=== PATIENT | male | born 1940 | race Caucasian/White ===

== ENCOUNTER → 2020-01-01 08:09 | Outpatient (BNVA) | payer MEDICARE, OTHER, SELFPAY | PROVIDERS: PCP Family Medicine; Referring Provider Family Medicine; Visit Provider Nurse Practitioner Family | DX: I25.10 Atherosclerotic heart disease of native coronary artery without angina pectoris (principal); R09.89 Other specified symptoms and signs involving the circulatory and respiratory systems; E78.5 Hyperlipidemia, unspecified; I10 Essential (primary) hypertension; E11.9 Type 2 diabetes mellitus without complications; Z79.82 Long term (current) use of aspirin; Z79.899 Other long term (current) drug therapy; Z86.79 Personal history of other diseases of the circulatory system; Z95.1 Presence of aortocoronary bypass graft | CPT/HCPCS: 99214 ==

== ENCOUNTER 2020-02-19 09:28 | Outpatient (REF) | payer MEDICARE, OTHER, SELFPAY ==
--- NOTE | 2020-02-19 09:34 | US_ITS ---
EXAMINATION: US EXTRACRANIAL CAROTID DUPLEX, BILATERAL CLINICAL INFORMATION: History of right carotid endarterectomy 10 years ago. Surveillance. COMPARISON: Ultrasound carotid Doppler 09/01/2009. TECHNIQUE: Real-time ultrasound and Doppler techniques (integrating B-mode 2-D vascular images, Doppler spectral analysis and color-flow Doppler imaging) were utilized to interrogate the extracranial carotid arteries, the vertebral arteries and proximal subclavian arteries bilaterally. The degree of stenosis is determined by criteria similar to NASCET. FINDINGS: Right Side: 1. There is hard atherosclerotic plaque seen in the bifurcation/proximal ICA region. 2. The common carotid artery PSV proximally is 77 cm/s and distally 63 cm/s. 3. The proximal internal carotid artery velocities are 199 cm/s systolic and 46 cm/s diastolic. 4. The proximal external carotid artery PSV is 83 cm/s. 5. The vertebral artery shows antegrade flow. 6. The subclavian artery waveforms are normal. Left Side: 1. There is hard atherosclerotic plaque seen in the bifurcation/proximal ICA region. 2. The common carotid artery PSV proximally is 124 cm/s and distally 95 cm/s. 3. The proximal internal carotid artery velocities are 93 cm/s systolic and 16 cm/s diastolic. 4. The proximal external carotid artery PSV is 123 cm/s. 5. The vertebral artery shows antegrade flow. 6. The subclavian artery waveforms are normal. US/US carotid duplex BI IMPRESSION: 1. RIGHT: 50-79% range stenosis right internal carotid artery with hard atherosclerotic plaque and increased internal carotid artery velocities. 2. LEFT: 0-49% range stenosis left carotid artery. 3. Normal antegrade flow seen in both vertebral arteries.
== END 2020-02-19 09:29 | disposition home or self-care (01) ==
LOC: HO.US 09:28
PROVIDERS: Visit Provider Nurse Practitioner Family
DX: I77.9 Disorder of arteries and arterioles, unspecified (principal); I65.21 Occlusion and stenosis of right carotid artery; I10 Essential (primary) hypertension; E78.5 Hyperlipidemia, unspecified; Z98.890 Other specified postprocedural states
CPT/HCPCS: 93880

== ENCOUNTER → 2020-03-18 10:12 | Outpatient (BNVA) | payer MEDICARE, OTHER, SELFPAY | PROVIDERS: PCP Family Medicine; Visit Provider Surgery Vascular Surgery | DX: I65.23 Occlusion and stenosis of bilateral carotid arteries (principal); Z79.82 Long term (current) use of aspirin; Z79.899 Other long term (current) drug therapy | CPT/HCPCS: 99202 ==

== ENCOUNTER 2020-06-02 06:58 | Outpatient (REF) | payer MEDICARE, OTHER, SELFPAY ==
[2020-06-02 08:42] LABS: Alanine Aminotransferase 46 U/L (0-40); Anion Gap 14 (12-20); Blood Urea Nitrogen 22 mg/dL (9-16); Carbon Dioxide 29 mmol/L (22-29); Chloride 102 mmol/L (96-108); Cholesterol 135 mg/dL; Estimated Glomerular Filt Rate > 60; HDL Cholesterol 42 mg/dL; LDL Cholesterol Calculated 57 mg/dl; Potassium 4.8 mmol/L (3.3-5.1); Sodium 140 mmol/L (135-145); Triglycerides 181 mg/dL
== END 2020-06-02 06:59 | disposition home or self-care (01) ==
LOC: HO.LAB 06:58
PROVIDERS: PCP Family Medicine; Visit Provider Family Medicine
DX: I10 Essential (primary) hypertension (principal); E11.9 Type 2 diabetes mellitus without complications; E78.00 Pure hypercholesterolemia, unspecified; Z79.899 Other long term (current) drug therapy
CPT/HCPCS: 36415; 80051; 80061; 82550; 82565; 84460; 84520

== ENCOUNTER → 2020-06-19 08:06 | Outpatient (BNVA) | payer MEDICARE, OTHER, SELFPAY | PROVIDERS: PCP Family Medicine; Visit Provider Internal Medicine | DX: I25.10 Atherosclerotic heart disease of native coronary artery without angina pectoris (principal); I10 Essential (primary) hypertension; I65.23 Occlusion and stenosis of bilateral carotid arteries; E78.5 Hyperlipidemia, unspecified; Z95.1 Presence of aortocoronary bypass graft | CPT/HCPCS: 99212 ==

== ENCOUNTER 2020-09-16 13:33 | Outpatient (REF) | payer MEDICARE, OTHER, SELFPAY ==
--- NOTE | ~2020-09-16 | US_ITS ---
EXAMINATION: US EXTRACRANIAL CAROTID DUPLEX, BILATERAL CLINICAL INFORMATION: Status post right endarterectomy 10 years ago. COMPARISON: Ultrasound carotid 02/19/2020 TECHNIQUE: Real-time ultrasound and Doppler techniques (integrating B-mode 2-D vascular images, Doppler spectral analysis and color-flow Doppler imaging) were utilized to interrogate the extracranial carotid arteries, the vertebral arteries and proximal subclavian arteries bilaterally. The degree of stenosis is determined by criteria similar to NASCET. FINDINGS: Right Side: 1. There is hard atherosclerotic plaque seen in the bifurcation/proximal ICA region. 2. The common carotid artery PSV proximally is 78 cm/s and distally 60.4 cm/s. 3. The proximal internal carotid artery velocities are 142 cm/s systolic and 28.5 cm/s diastolic. 4. The proximal external carotid artery PSV is 248 cm/s. 5. The vertebral artery shows antegrade flow. 6. The subclavian artery waveforms are normal. Left Side: 1. There is hard atherosclerotic plaque seen in the bifurcation/distal CCA. 2. The common carotid artery PSV proximally is 120 cm/s and distally 83.8 cm/s. 3. The proximal internal carotid artery velocities are 112 cm/s systolic and 21.2 cm/s diastolic. 4. The proximal external carotid artery PSV is 125 cm/s. 5. The vertebral artery shows antegrade flow. 6. The subclavian artery waveforms are 76.2. US/US carotid duplex BI IMPRESSION: 1. RIGHT: 50-79% range stenosis. 2. LEFT: 0-49% range stenosis 3. There is no change in the category severity of disease when compared to the previous study dated 02/19/2020. 4. Normal antegrade flow seen in both vertebral arteries.
== END 2020-09-16 13:34 | disposition home or self-care (01) ==
LOC: HO.HMGCX 13:33
PROVIDERS: PCP Family Medicine; Visit Provider Surgery Vascular Surgery
DX: I65.23 Occlusion and stenosis of bilateral carotid arteries (principal)
CPT/HCPCS: 93880

== ENCOUNTER → 2020-09-30 09:54 | Outpatient (BNVA) | payer MEDICARE, OTHER, SELFPAY | PROVIDERS: PCP Family Medicine; Visit Provider Surgery Vascular Surgery | DX: I65.23 Occlusion and stenosis of bilateral carotid arteries (principal) | CPT/HCPCS: 99212 ==

== ENCOUNTER 2020-11-04 06:29 | Outpatient (REF) | payer MEDICARE, OTHER, SELFPAY ==
[2020-11-04 08:29] LABS: Estimated Average Glucose 160 mg/dL; Hemoglobin A1c % 7.2 %
[2020-11-04 08:37] LABS: Creatinine Urine 111.91 mg/dL; Microalbum/Creatinine Ratio Ur 80.4 ug/mg cr
[2020-11-04 08:54] LABS: Alanine Aminotransferase 47 U/L (0-40); Anion Gap 17 (12-20); Aspartate Amino Transferase 29 U/L (5-37); Blood Urea Nitrogen 29 mg/dL (9-16); Carbon Dioxide 26 mmol/L (22-29); Chloride 103 mmol/L (96-108); Estimated Glomerular Filt Rate > 60; Glucose Fasting 146 mg/dL (60-99); Potassium 5.8 mmol/L (3.3-5.1); Sodium 140 mmol/L (135-145)
== END 2020-11-04 06:30 | disposition home or self-care (01) ==
LOC: HO.LAB 06:29
PROVIDERS: PCP Family Medicine; Referring Provider Internal Medicine; Visit Provider Family Medicine
DX: I10 Essential (primary) hypertension (principal); E11.9 Type 2 diabetes mellitus without complications; R79.89 Other specified abnormal findings of blood chemistry
CPT/HCPCS: 36415; 80051; 82043; 82565; 82947; 83036; 84450; 84460; 84520

== ENCOUNTER 2020-11-25 08:01 | Outpatient (REF) | payer MEDICARE, OTHER, SELFPAY ==
[2020-11-25 10:35] LABS: Anion Gap 12 (12-20); Carbon Dioxide 26 mmol/L (22-29); Chloride 106 mmol/L (96-108); Potassium 4.7 mmol/L (3.3-5.1); Sodium 139 mmol/L (135-145)
== END 2020-11-25 08:02 | disposition home or self-care (01) ==
LOC: HO.10HDL 08:01
PROVIDERS: Visit Provider Family Medicine
DX: I10 Essential (primary) hypertension (principal); E87.5 Hyperkalemia
CPT/HCPCS: 36415; 80051

== ENCOUNTER → 2020-12-24 07:58 | Outpatient (BNVA) | payer MEDICARE, OTHER, SELFPAY | PROVIDERS: PCP Family Medicine; Visit Provider Internal Medicine | DX: I25.10 Atherosclerotic heart disease of native coronary artery without angina pectoris (principal); I10 Essential (primary) hypertension; I65.23 Occlusion and stenosis of bilateral carotid arteries; E78.5 Hyperlipidemia, unspecified; Z95.1 Presence of aortocoronary bypass graft | CPT/HCPCS: 93005; 99212 ==

== ENCOUNTER 2021-03-04 07:58 | Outpatient (REF) | payer MEDICARE, OTHER, SELFPAY ==
--- NOTE | ~2021-03-04 | XR_ITS ---
EXAMINATION: XR HAND, RIGHT CLINICAL INFORMATION: Pain in right hand. COMPARISON: None TECHNIQUE: PA, lateral, and oblique views of the right hand. FINDINGS: There is no acute fracture or malalignment. There is mild osteoarthritis of the triscaphe and first and second CMC joints. There are small marginal osteophytes involving the first through fourth MCP joints with no significant joint space narrowing. There is mild subchondral sclerosis at the first IP joint. There may be tiny subchondral degenerative cysts at the second and third DIP joints. There is a possible small erosion involving the radial head of the fifth middle phalanx. XR/XR hand RT min 3V IMPRESSION: Mild osteoarthritis involving multiple joints. Possible small erosion of the head of the fifth middle phalanx.
== END 2021-03-04 07:59 | disposition home or self-care (01) ==
LOC: HO.HOSX 07:58
PROVIDERS: Visit Provider Orthopaedic Surgery
DX: M79.641 Pain in right hand (principal); M65.331 Trigger finger, right middle finger
CPT/HCPCS: 20550; 73130; 99202; J1100

== ENCOUNTER → 2021-04-08 09:18 | Outpatient (BNVA) | payer MEDICARE, OTHER, SELFPAY | PROVIDERS: Visit Provider Orthopaedic Surgery | DX: M65.331 Trigger finger, right middle finger (principal); M25.641 Stiffness of right hand, not elsewhere classified | CPT/HCPCS: 99212 ==

== ENCOUNTER 2021-06-17 06:39 | Outpatient (REF) | payer MEDICARE, OTHER, SELFPAY ==
--- NOTE | 2021-06-17 | ECG_ITS ---
Test Reason : LEFT SHOULDER PAIN Blood Pressure : / mmHG Vent. Rate : 066 BPM Atrial Rate : 066 BPM P-R Int : 204 ms QRS Dur : 084 ms QT Int : 420 ms P-R-T Axes : 057 022 059 degrees QTc Int : 440 ms Sinus rhythm with marked sinus arrhythmia Otherwise normal ECG When compared with ECG of 28-SEP-2018 06:35, No significant change was found Referred By: Jose Ramon Garces Electronically Signed By:GIULIANA SHANNON
--- NOTE | ~2021-06-17 | XR_ITS ---
EXAMINATION: XR SHOULDER, LEFT CLINICAL INFORMATION: Pain COMPARISON: None TECHNIQUE: AP external rotation, Grashey, scapular Y, and axillary views of the left shoulder. FINDINGS: Bone alignment is normal. No acute fracture or dislocation is seen. There is soft tissue calcification or ossification superior to the glenoid. The glenohumeral joint is otherwise normal. There is arthritis at the acromioclavicular joint. Soft tissues are otherwise normal. XR/XR shoulder LT min 2V IMPRESSION: Soft tissue calcification or ossification superior to the glenoid and mild arthritis at the acromioclavicular joint.
[2021-06-17 07:52] LABS: Estimated Average Glucose 160 mg/dL; Hemoglobin A1c % 7.2 %
[2021-06-17 07:58] LABS: Alanine Aminotransferase 61 U/L (0-40); Anion Gap 14 (12-20); Aspartate Amino Transferase 31 U/L (5-37); Blood Urea Nitrogen 24 mg/dL (9-16); Carbon Dioxide 29 mmol/L (22-29); Chloride 100 mmol/L (96-108); Cholesterol 146 mg/dL; Estimated Glomerular Filt Rate > 60; Glucose Fasting 149 mg/dL (60-99); HDL Cholesterol 37 mg/dL; LDL Cholesterol Calculated 62 mg/dl; Potassium 4.5 mmol/L (3.3-5.1); Sodium 138 mmol/L (135-145); Triglycerides 236 mg/dL
[2021-06-17 08:41] LABS: Appearance Urine CLEAR; Color Urine YELLOW; Glucose Urine UA >=1000 MG/DL (NEG); Leukocyte Esterase Urine NEG (NEG); Nitrite Urine NEG (NEG); PH 5.5 (5.0-8.0); Urine Blood NEG (NEG); Urine Ketones 5 MG/DL (NEG); Urine Protein 1+ MG/DL (NEG-TRACE)
[2021-06-17 08:48] LABS: RBC Urine 0 /HPF (0); WBC Urine 0 /HPF (0-4)
[2021-06-17 09:09] LABS: Creatinine Urine 145.88 mg/dL; Microalbum/Creatinine Ratio Ur 227.5 ug/mg cr
== END 2021-06-17 06:40 | disposition home or self-care (01) ==
LOC: HO.XRAY 06:39
PROVIDERS: PCP Family Medicine; Visit Provider Family Medicine
DX: R00.2 Palpitations (principal); M25.512 Pain in left shoulder; I10 Essential (primary) hypertension; E11.9 Type 2 diabetes mellitus without complications; E78.00 Pure hypercholesterolemia, unspecified; Z79.899 Other long term (current) drug therapy
CPT/HCPCS: 36415; 73030; 80051; 80061; 81001; 82043; 82550; 82565; 82947; 83036; 84450; 84460; 84520; 93005

== ENCOUNTER → 2021-07-17 08:07 | Outpatient (BNVA) | payer MEDICARE, OTHER, SELFPAY | PROVIDERS: PCP Family Medicine; Visit Provider Physician Assistant | DX: M75.32 Calcific tendinitis of left shoulder (principal); M19.012 Primary osteoarthritis, left shoulder | CPT/HCPCS: 20610; 99202; J1020 ==

== ENCOUNTER 2021-10-20 06:26 | Outpatient (REF) | payer MEDICARE, OTHER, SELFPAY ==
--- NOTE | ~2021-10-20 | US_ITS ---
EXAMINATION: US EXTRACRANIAL CAROTID DUPLEX, BILATERAL CLINICAL INFORMATION: This is an 81-year-old male with history of hypertension, hyperlipidemia, myocardial infarction, status post carotid endarterectomy, carotid artery disease. The patient is status post right carotid endarterectomy 12 years ago. COMPARISON: Comparison is made to a previous study dated 09/16/2020 which was reported as 50-79% right internal carotid artery stenosis and 0-49% left internal carotid artery stenosis. TECHNIQUE: Real-time ultrasound and Doppler techniques (integrating B-mode 2-D vascular images, Doppler spectral analysis and color-flow Doppler imaging) were utilized to interrogate the extracranial carotid arteries, the vertebral arteries and proximal subclavian arteries bilaterally. The degree of stenosis is determined by criteria similar to NASCET. FINDINGS: Right Side: 1. There is minimal atherosclerotic plaque seen in the bifurcation/proximal ICA region. 2. The common carotid artery PSV proximally is 77 cm/s and distally 83 cm/s. 3. The proximal internal carotid artery velocities are 106 cm/s systolic and 32 cm/s diastolic. 4. The proximal external carotid artery PSV is 179 cm/s. 5. The vertebral artery shows antegrade flow. 6. The subclavian artery waveforms are normal. Left Side: 1. There is minimal atherosclerotic plaque seen in the bifurcation/proximal ICA region. 2. The common carotid artery PSV proximally is 80 cm/s and distally 82 cm/s. 3. The proximal internal carotid artery velocities are 54 cm/s systolic and 14 cm/s diastolic. 4. The proximal external carotid artery PSV is 92 cm/s. 5. The vertebral artery shows antegrade flow. 6. The subclavian artery waveforms are normal. US/US carotid duplex BI IMPRESSION: 1. RIGHT: Minimal, non-hemodynamically significant stenosis of the proximal right internal carotid artery corresponding to a 0-49% stenosis by velocity criteria. The category severity of disease appears less severe on the current study when compared to the previous study dated 09/16/2020. 2. LEFT: Minimal, non-hemodynamically significant stenosis of the proximal left internal carotid artery corresponding to a 0-49% stenosis by velocity criteria. The category severity of disease appears unchanged when compared to the previous study dated 09/16/2020.
[2021-10-20 07:05] LABS: Estimated Average Glucose 163 mg/dL; Hemoglobin A1c % 7.3 %
[2021-10-20 07:14] LABS: Alanine Aminotransferase 55 U/L (0-40); Anion Gap 17 (12-20); Aspartate Amino Transferase 37 U/L (5-37); Blood Urea Nitrogen 26 mg/dL (9-16); Carbon Dioxide 28 mmol/L (22-29); Chloride 101 mmol/L (96-108); Estimated Glomerular Filt Rate > 60; Glucose Fasting 141 mg/dL (60-99); Potassium 4.9 mmol/L (3.3-5.1); Sodium 141 mmol/L (135-145)
== END 2021-10-20 06:27 | disposition home or self-care (01) ==
LOC: HO.US 06:26
PROVIDERS: Absent Provider Family Medicine; PCP Family Medicine; Visit Provider Surgery Vascular Surgery
DX: I10 Essential (primary) hypertension (principal); E11.9 Type 2 diabetes mellitus without complications; E78.00 Pure hypercholesterolemia, unspecified; Z79.899 Other long term (current) drug therapy; I65.23 Occlusion and stenosis of bilateral carotid arteries
CPT/HCPCS: 36415; 80051; 82550; 82565; 82947; 83036; 84450; 84460; 84520; 93880

== ENCOUNTER → 2021-10-22 10:42 | Outpatient (BNVA) | payer MEDICARE, OTHER, SELFPAY | PROVIDERS: PCP Family Medicine; Visit Provider Surgery Vascular Surgery | DX: I65.23 Occlusion and stenosis of bilateral carotid arteries (principal) | CPT/HCPCS: 99212 ==

== ENCOUNTER → 2021-12-24 08:02 | Outpatient (BNVA) | payer MEDICARE, OTHER, SELFPAY | PROVIDERS: PCP Family Medicine; Referring Provider Family Medicine; Visit Provider Internal Medicine | DX: I25.10 Atherosclerotic heart disease of native coronary artery without angina pectoris (principal); E11.9 Type 2 diabetes mellitus without complications; I10 Essential (primary) hypertension; E78.5 Hyperlipidemia, unspecified; I65.23 Occlusion and stenosis of bilateral carotid arteries; Z95.1 Presence of aortocoronary bypass graft | CPT/HCPCS: 99212 ==

== ENCOUNTER 2022-06-15 07:46 | Outpatient (REF) | payer MEDICARE, OTHER, SELFPAY ==
[2022-06-15 11:35] LABS: Alanine Aminotransferase 28 U/L (0-40); Anion Gap 15 (12-20); Aspartate Amino Transferase 21 U/L (5-37); Blood Urea Nitrogen 28 mg/dL (9-16); Carbon Dioxide 28 mmol/L (22-29); Chloride 104 mmol/L (96-108); Estimated Glomerular Filt Rate > 60; Glucose Fasting 128 mg/dL (60-99); Potassium 4.9 mmol/L (3.3-5.1); Sodium 142 mmol/L (135-145)
[2022-06-15 12:10] LABS: Estimated Average Glucose 143 mg/dL; Hemoglobin A1c % 6.6 %
== END 2022-06-15 07:47 | disposition home or self-care (01) ==
LOC: HO.10HDL 07:46
PROVIDERS: Absent Provider Internal Medicine Endocrinology, Diabetes & Metabolism; PCP Family Medicine; Visit Provider Family Medicine
DX: E11.9 Type 2 diabetes mellitus without complications (principal); I10 Essential (primary) hypertension; E78.00 Pure hypercholesterolemia, unspecified; Z79.899 Other long term (current) drug therapy
CPT/HCPCS: 36415; 80051; 82550; 82565; 82947; 83036; 84450; 84460; 84520

== ENCOUNTER 2022-10-20 09:34 | Outpatient (REF) | payer MEDICARE, OTHER, SELFPAY ==
--- NOTE | ~2022-10-20 | US_ITS ---
EXAMINATION: US EXTRACRANIAL CAROTID DUPLEX, BILATERAL CLINICAL INFORMATION: Carotid stenosis. COMPARISON: 10/20/2021. TECHNIQUE: Real-time ultrasound and Doppler techniques (integrating B-mode 2-D vascular images, Doppler spectral analysis and color-flow Doppler imaging) were utilized to interrogate the extracranial carotid arteries, the vertebral arteries and proximal subclavian arteries bilaterally. The degree of stenosis is determined by criteria similar to NASCET. FINDINGS: Right Side: 1. There is mild atherosclerotic plaque seen in the bifurcation/proximal ICA region. 2. The common carotid artery PSV proximally is 105 cm/s and distally 84 cm/s. 3. The proximal internal carotid artery velocities are 91 cm/s systolic and 16 cm/s diastolic. 4. The proximal external carotid artery PSV is 238 cm/s. 5. The vertebral artery shows antegrade flow. 6. The subclavian artery waveforms are normal. Left Side: 1. There is mild atherosclerotic plaque seen in the bifurcation/proximal ICA region. 2. The common carotid artery PSV proximally is 114 cm/s and distally 95 cm/s. 3. The proximal internal carotid artery velocities are 96 cm/s systolic and 19 cm/s diastolic. 4. The proximal external carotid artery PSV is 113 cm/s. 5. The vertebral artery shows antegrade flow. 6. The subclavian artery waveforms are normal. US/US carotid duplex BI IMPRESSION: 1. RIGHT: Minimal, non-hemodynamically significant stenosis of the proximal right internal carotid artery corresponding to a 0-49% stenosis by velocity criteria. Velocity in the right ECA is now greater than 200 consistent with a stenosis. 2. LEFT: Minimal, non-hemodynamically significant stenosis of the proximal left internal carotid artery corresponding to a 0-49% stenosis by velocity criteria. 3. There is no change in the category severity of disease when compared to the previous study dated 10/20/2021.
== END 2022-10-20 09:35 | disposition home or self-care (01) ==
LOC: HO.US 09:34
PROVIDERS: PCP Family Medicine; Visit Provider Surgery Vascular Surgery
DX: I65.23 Occlusion and stenosis of bilateral carotid arteries (principal)
CPT/HCPCS: 93880

== ENCOUNTER 2022-11-23 08:31 | Outpatient (AMB) | payer MEDICARE, OTHER, SELFPAY ==
[2022-11-23 08:58] VITALS: BP 124/66
--- NOTE | 2022-11-23 08:58 | A.OFFVIS_ITS ---
Intake Vital Signs 11/23/22 08:58 11/23/22 09:05 Height 5 ft 8 in Weight 197 lb BMI 30.0 BP 124/66 118/60 Blood Pressure Location Lt brachial Rt brachial Position Sitting Sitting Intake Visit Reasons: 1 year follow up carotid US 10/20/2022 Intake Note: 1 yr carotid US follow up 10/20/22, Hx carotid surgery w/ Dr. Nicole 2010? No complaints Accompanied by: Self / Same As Patient Allergies oxycodone [OXYCODONE] Allergy (Unknown, Verified 11/23/22 09:02) NAUSEA & VOMITING HPI 1 year follow up carotid US 10/20/2022 HPI Details Very pleasant 82-year-old gentleman presents for follow-up evaluation regarding carotid disease. He actually had undergone right carotid endarterectomy by Dr. Nicole nearly 20 years ago. He reports that he is doing fairly well. Denies any interval issues. He also reports no lateralizing signs or symptoms including arm or leg weakness visual loss or speech disturbances. He now presents for follow-up with surveillance ultrasound. Of note he is a nonsmoker and has been a diabetic for over 7 years peer [facility] Medical History Carotid arterial disease Coronary artery disease Diabetes mellitus GERD (gastroesophageal reflux disease) Hyperlipemia Hypertension Myocardial infarct (~1989) Prostate CA (~2002) Surgical History H/O carotid endarterectomy (~2008) History of cardiac catheterization (~11/16/17) History of cataract surgery History of cholecystectomy (~02/26/14) History of coronary artery bypass graft x 3 (~01/04/18) Status post coronary artery bypass graft Family History Father Cardiovascular disease Myocardial infarction Mother No problems noted. 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 Review of Systems Const All systems reviewed & are unremarkable except as noted in HPI and below Reports no additional complaints ENT Reports Normal hearing present Card Denies chest pain, Denies chest pain at rest, Denies chest pain with activity and Denies pedal edema Resp Denies cough GI Denies abdominal pain Musc Denies abnormal gait, Denies muscle cramps and Denies radiating pain into limb Skin/Breast Denies skin ulcer and Denies wounds Neuro Reports Normal hearing present and Denies abnormal gait Psych Reports no additional complaints Physical Exam Vital Signs: Last Vital Signs BP 118/60 11/23/22 09:05 BMI result Body Mass Index 30.0 Const General: cooperative, healthy appearing and comfortable Orientation/consciousness: oriented to person, oriented to place and oriented to time HEENT Head: Yes normal to inspection Neck Neck: Yes normal visual inspection Carotids: no bruits Chest Chest palpation & inspection: normal inspection of the chest Resp Effort & Inspection: normal respiratory effort and able to speak in complete sentences Auscultation: clear to auscultation bilaterally, no crackles, no rales, no rhonchi and no wheezes Cardio Rate: regular rate Rhythm: regular rhythm Heart sounds: S1 normal heart sound present and S2 normal heart sound present Bruits: no carotid bruits Peripheral pulses: Peripheral pulses 2+ throughout GI Inspection: Yes normal to inspection Skin Wounds: no wounds Hair: normal Neuro General: oriented to person, oriented to place and oriented to time Cranial nerves: Yes CN's II-XII intact bilaterally and Yes Normal hearing present Cognition (Neuro): normal cognition Motor exam (neuro): 5/5 motor strength present throughout Extrem Other: venous exam: No significant superficial varicosities or spider telangiectasias, minimal edema General: No clubbing, No cyanosis and No edema Psych Appearance: grossly normal Mental Status: mental status grossly normal Speech and movement: Normal speech and movement present Results Reviewed Results Reviewed: Noninvasive testing dated 10/20/2022 demonstrates bilateral 0-49% stenosis. No change from prior study Assessment & Plan Assessment & Plan (1) Carotid arterial disease: Comment: 2002 - right carotid endarterectomy by Dr. Nicole Code(s): I77.9 - Disorder of arteries and arterioles, unspecified Plan: In short patient has asymptomatic carotid disease. We have reviewed signs and symptoms of a stroke. We also discussed risk factor modification inclusive a healthy diet low in cholesterol. The patient will follow up with us with surveillance ultrasound of the carotids 1 year. Should there be any changes or signs or symptoms of a stroke we will be happy to see them back sooner. Thank you for allowing us to participate in this patient's care. If there are any questions or concerns please do not hesitate to contact us. Orders: Orders US carotid duplex BI 364 Days I77.9 - Disorder of arteries and arterioles, unspecified Coding Level of Care Code Est Pt Level 4 (80956) Diagnoses Carotid arterial disease I77.9
[2022-11-23 09:05] VITALS: BP 118/60
== END 2022-11-23 09:13 | disposition home or self-care (01) ==
PROVIDERS: PCP Family Medicine; Visit Provider Surgery Vascular Surgery
DX: I77.9 Disorder of arteries and arterioles, unspecified (principal); Z98.62 Peripheral vascular angioplasty status
CPT/HCPCS: 99213

== ENCOUNTER → 2022-11-23 08:31 | Outpatient (BNVA) | payer MEDICARE, OTHER, SELFPAY | PROVIDERS: PCP Family Medicine; Visit Provider Surgery Vascular Surgery | DX: I77.9 Disorder of arteries and arterioles, unspecified (principal) | CPT/HCPCS: 99212 ==

== ENCOUNTER 2022-12-24 10:16 | Outpatient (REF) | payer MEDICARE, OTHER, SELFPAY | END 2022-12-24 10:17 | disposition home or self-care (01) | LOC: HO.LAB 10:16 | PROVIDERS: Absent Provider Internal Medicine; PCP Family Medicine; Visit Provider Family Medicine | DX: I10 Essential (primary) hypertension (principal); E78.00 Pure hypercholesterolemia, unspecified; M19.90 Unspecified osteoarthritis, unspecified site; Z79.899 Other long term (current) drug therapy | CPT/HCPCS: 36415; 80051; 82550; 82565; 84450; 84460; 84520; 85025; 85652; 86038; 86140; 86431; 86617; 86618 ==

== ENCOUNTER 2022-12-28 08:11 | Outpatient (AMB) | payer MEDICARE, OTHER, SELFPAY ==
--- NOTE | 2022-12-28 08:36 | MHC.OFFVIS ---
Intake Vital Signs 12/28/22 08:37 Height 5 ft 8 in Weight 191 lb 5.78 oz BMI 29.1 BP 150/64 H Blood Pressure Location Lt brachial Position Sitting Pulse 50 Intake Visit Reasons: 1 yr f/up Intake Note: 1 year followu p w/ EKG Pumping Supervisor Required: No Accompanied by: Spouse Allergies oxycodone [OXYCODONE] Allergy (Unknown, Verified 12/28/22 08:37) NAUSEA & VOMITING Medication List - Last Reconciled 12/28/22 by Case Mtz MD allopurinol 300 mg PO DAILY amlodipine 2.5 mg PO DAILY 90 days aspirin (Adult Low Dose Aspirin) 81 mg PO DAILY atorvastatin 80 mg PO DAILY bicalutamide 50 mg PO DAILY celecoxib (Celebrex) 200 mg PO BID 30 days empagliflozin (Jardiance) 10 mg PO DAILY ezetimibe 10 mg PO DAILY 90 days insulin aspart U-100 units subcut insulin detemir U-100 (Levemir FlexTouch U-100 Insulin) units subcut lisinopril 10 mg PO DAILY metformin 500 mg PO BID metformin 500 mg PO BID metoprolol tartrate 50 mg PO BID omeprazole 20 mg PO BID pen needle, diabetic (Novofine 32) As directed HPI HPI Comments History of Present Illness Details Norman returns for follow-up regarding coronary artery disease. No complaints like angina or shortness of breath or anything else. Overall, feeling good. 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 Review of Systems Const Denies weakness ENT Denies dizziness Card Denies chest pain, Denies chest pain with activity, Denies syncope, Denies rapid heart rate, Denies pedal edema, Denies edema, Denies leg edema, Denies lightheadedness, Denies palpitations, Denies dyspnea, Denies dyspnea on exertion and Denies orthopnea Resp Denies cough, Denies dyspnea and Denies dyspnea on exertion GI Denies hematochezia and Denies change in stool character Musc Denies abnormal gait, Denies muscle cramps, Denies muscle weakness, Denies numbness, Denies radiating pain into limb and Denies tingling Neuro Denies abnormal gait, Denies dizziness, Denies syncope, Denies numbness, Denies tingling and Denies weakness Endo Denies palpitations Physical Exam Vital Signs: Last Vital Signs Pulse 50 12/28/22 08:37 BP 150/64 H 12/28/22 08:37 BMI result Body Mass Index 29.1 Const General: comfortable and no acute distress Orientation/consciousness: patient oriented x3 HEENT Other: Unremarkable Head: Yes normal to inspection Neck Neck: Yes normal visual inspection Chest Chest palpation & inspection: normal inspection of the chest Resp Auscultation: clear to auscultation bilaterally Cardio Palpation: normal PMI Heart sounds: S1 normal heart sound present, S2 normal heart sound present, no gallops, Murmur heart sound present systolic II/ and no rubs GI Palpation (GI): Soft to palpation Back/Spine/Pelvis Other: unremarkable Skin General skin exam: no rashes or lesions noted Neuro General: patient oriented x3 Extrem General: Yes normal to inspection Psych Mental Status: mental status grossly normal Office Procedures EKG Details: EKG shows sinus bradycardia at 50/Min; LA prolongation to 232 milliseconds; [place]. [id number], Complete Assessment & Plan Assessment & Plan (1) Atherosclerotic cardiovascular disease: Code(s): I25.10 - Atherosclerotic heart disease of [place] coronary artery without angina pectoris Plan: Clinically no angina or any concerns. Continue aspirin, beta-blockers. Due to bradycardia, decrease the dose of beta-blockers. Discussed with patient. (2) Status post coronary artery bypass graft: Code(s): Z95.1 - Presence of aortocoronary bypass graft Plan: Stable. Also had left atrial appendage ligation. He had ADMINISTRATIVE SECRETARY of the RCA, not bypassed. (3) Diabetes mellitus: Code(s): E11.9 - Type 2 diabetes mellitus without complications Qualifiers: Diabetes mellitus type: type 2 Diabetes mellitus long term care administrator insulin use: with long term care administrator use Plan: Last hemoglobin A1c is 7.3%. On a combination of Jardiance, insulin, metformin. (4) Essential hypertension: Code(s): I10 - Essential (primary) hypertension Plan: Blood pressure is on the higher side. Advised him to do some home blood pressures and contact us. (5) Other and unspecified hyperlipidemia: Code(s): E78.5 - Hyperlipidemia, unspecified Plan: Continue statins/zetia. Stable lipids. Triglycerides on the higher side. (6) Carotid stenosis, bilateral: Comment: 2002 - right carotid endarterectomy Dr. Nicole Code(s): I65.23 - Occlusion and stenosis of bilateral carotid arteries Plan: No significant stenosis bilaterally. Orders: Orders CA echo transthoracic complete Today I25.10 - Atherosclerotic heart disease of [place] coronary artery without angina pectoris Medications: New metoprolol succinate ER (Toprol XL) 50 mg PO DAILY 90 tabs 3RF Discontinued metoprolol tartrate Discontinued Reason: Doctor's Order 50 mg PO BID 180 tabs 3RF Coding Level of Care Code Est Pt Level 4 (37254) Diagnoses Atherosclerotic cardiovascular disease I25.10 Status post coronary artery bypass graft Z95.1 Diabetes mellitus E11.9 Diabetes mellitus type: type 2 Diabetes mellitus mcc insulin use: with long term care administrator use Essential hypertension I10 Other and unspecified hyperlipidemia E78.5 Carotid stenosis, bilateral I65.23 CPT Codes EKG - CPT: 24703-[id number], Complete ([id number])
[2022-12-28 08:37] VITALS: BP 150/64; PULSE 50; BMI 29.1
== END 2022-12-28 08:55 | disposition home or self-care (01) ==
PROVIDERS: PCP Family Medicine; Visit Provider Internal Medicine
DX: I25.10 Atherosclerotic heart disease of native coronary artery without angina pectoris (principal); Z95.1 Presence of aortocoronary bypass graft; E11.9 Type 2 diabetes mellitus without complications; I10 Essential (primary) hypertension; E78.5 Hyperlipidemia, unspecified; I65.23 Occlusion and stenosis of bilateral carotid arteries
CPT/HCPCS: 93010; 99214

== ENCOUNTER → 2022-12-28 08:11 | Outpatient (BNVA) | payer MEDICARE, OTHER, SELFPAY | PROVIDERS: PCP Family Medicine; Visit Provider Internal Medicine | DX: I25.10 Atherosclerotic heart disease of native coronary artery without angina pectoris (principal); I10 Essential (primary) hypertension; I65.23 Occlusion and stenosis of bilateral carotid arteries; E11.9 Type 2 diabetes mellitus without complications; E78.5 Hyperlipidemia, unspecified; Z95.1 Presence of aortocoronary bypass graft | CPT/HCPCS: 93005; 99212 ==

== ENCOUNTER → 2023-01-28 10:37 | Outpatient (REF) | payer MEDICARE, OTHER, SELFPAY ==
--- NOTE | 2023-01-28 10:40 | CA_ITS ---
Transthoracic Echocardiogram Patient (Last, First, Middle): Norman Ling D Gender: Male Date of : 1940 Age: 83 Procedure Date: 01/28/2023 Procedure Type: Transthoracic Echocardiogram Location: OP Height: 167.64 cm Weight: 88. kg BSA: 1.97 m2 Heart Rate: bpm BP: 120 / 68 mmHg Environmental Aide: Referring MD: Case Mtz MD Wedding Day Coordinator: Ottoniel García MD Symptoms: I25.10 - Atherosclerotic heart disease of [place] coronary artery without... Study Quality: Fair ECG Rhythm: Sinus Conclusions: - 1. Normal LV ejection fraction of 60 65% with mild LVH with grade 3 diastolic dysfunction 2. Early mild aortic stenosis 3. Mild left atrial enlargement 4. Upper limits normal ascending aortic size 5. Normal RV systolic pressure 6. No gross pericardial effusion Findings Left Ventricle Normal left ventricular size and systolic function. There is mildly increased left ventricular wall thickness. The visually estimated ejection fraction is between 60-65%. Spectral Doppler is indicative of a restrictive filling pattern. E/E prime ratio is >15, consistent with elevated filling pressures. Evidence suggests grade III (severe) diastolic dysfunction. Right Ventricle Normal right ventricular cavity size and systolic function. Atria The left atrium is mildly dilated. There is lipomatous hypertrophy of the interatrial septum. There is no evidence of interatrial shunt. The right atrium is likely dilated. Aortic Valve There is mild calcification of the aortic valve. There is mild thickening of the aortic valve. There is mild aortic valve stenosis. There is no aortic valve regurgitation. Mitral Valve Normal mitral valve structure and function. There is trace mitral valve regurgitation. There is no mitral valve stenosis. Pulmonic Valve The pulmonic valve was not well visualized. Tricuspid Valve Likely normal tricuspid valve structure and function. There is trace tricuspid valve regurgitation. The right ventricular systolic pressure is normal. The right ventricular systolic pressure is 17 mmHg. Normal right atrial pressure. There is no evidence of pulmonary hypertension. Great Vessels The pulmonary artery was not well visualized. Venous The inferior vena cava is normal in size and collapses greater than 50% with inspiration. Pericardium/Pleural There is no evidence of pericardial effusion. Measurements 2D Linear Measurements IVSd: 1.23 0.6-0.9/0.6-1.0 cm LVIDd: 4.16 3.9-5.3/4.2-5.9 cm LVIDd Index: 2.11 2.4-3.2/2.2-3.1 cm/m2 LVIDs: 2.84 2.0-3.6 cm LVPWd: 1.24 0.7-1.1 cm Ao Root: 3.60 2.1-3.5 cm LA Diam: 5.30 2.7-3.8/3.0-4.0 cm LAIDs Index: 2.69 1.5-2.3 cm/m2 LV Mass: 228.22 67-162/88-224 g LV Mass Index: 115.85 43-95/49-115 g/m2 LVOT Diam: 2.10 3.0+(-)1.3 cm 2D Systolic Function EF 4C: 59.60 >55% EF 2C: 66.80 >55% EF BiP: 63.70 >55% Mitral Valve MV Pk E: 1.06 MV PK A: 0.60 MV Decel Time: 274.00 E/A: 1.80 E'Lateral: 9.14 E'Medial: 53.80 E/E' Med: 2.00 E/E' Lat: 11.60 PHT: 80.00 MVA PHT: 2.75 Decel [place]: 3.87 Aortic Valve AoV Pk Yuan: 1.65 AoV Mn Yuan: 0.93 AoV VTI: 0.39 AoV Pk Grad: 11.00 Aov Mn Grad: 4.00 [place] Cont.VTI: 2.15 LVOT LVOT Pk Yuan: 0.92 LVOT Mn Yuan: 0.61 LVOT VTI: 0.24 LVOT Pk Grad: 3.00 LVOT Mn Grad: 2.00 LVOT Diam: 2.10 LVOT Area: 3.46 Diastolic Function MV Pk E: 1.06 MV Pk A: 0.60 E/A: 1.80 E'Medial: 53.80 E/E' Med: 2.00 E' Laterial: 9.14 E/E' Lat: 11.60 Tricuspid Valve TR Pk Yuan: 1.87 TR Pk Grad: 14.00 RA Press: 3.00 RVSP: 17.00 Great Vessels Aorta Ao Root-2D: 3.60 2.0-3.7 cm Ao Asc: 3.50 2.1-3.4 cm Updated in Other Vendor System with Status of Final Ottoniel García MD electronically signed on 01/28/2023 5:01:48 PM with status of Final
== END ==
LOC: HO.CARD 10:37
PROVIDERS: PCP Family Medicine; Visit Provider Internal Medicine
DX: I25.10 Atherosclerotic heart disease of native coronary artery without angina pectoris (principal)
CPT/HCPCS: 93306

== ENCOUNTER → 2023-01-28 10:40 | Outpatient (BNV) | payer MEDICARE, OTHER, SELFPAY | PROVIDERS: PCP Family Medicine; Visit Provider Internal Medicine Cardiovascular Disease | DX: I35.0 Nonrheumatic aortic (valve) stenosis (principal) | CPT/HCPCS: 93306 ==

== ENCOUNTER 2023-04-26 06:58 | Outpatient (REF) | payer MEDICARE, OTHER, SELFPAY ==
[2023-04-26 07:10] LABS: MANUAL DIFF FLAG NO
[2023-04-26 07:14] LABS: Basophils Absolute Auto 0.1 X10*3/uL (0.0-0.2); Basophils Percent Auto 0.7 % (0-2); Eosinophils Absolute Auto 0.5 X10*3/uL (0.0-0.4); Eosinophils Percent Auto 6.6 % (0-4); Hemoglobin 14.3 g/dl (14.0-18.0); Imm Gran Abs Auto 0.01 X10*3/uL (0.00-0.03); Imm Gran Pct Auto 0.1 % (0.0-0.4); Lymphocytes Absolute Auto 1.8 X10*3/uL (1.2-4.9); Lymphocytes Percent Auto 24.8 % (20-40); Mean Corpuscular Hemoglobin 32.1 pg (27.0-33.0); Mean Corpuscular Volume 94.4 fL (80.0-98.0); Mean Platelet Volume 8.7 fL (9.4-12.4); Monocytes Absolute Auto 0.8 X10*3/uL (0.1-1.2); Neutrophils Percent Auto 56.8 % (45-73); Platelet Count 314 X10*3/uL (160-400); Red Blood Count 4.45 X10*6/uL (4.60-5.80); Red Cell Distribution Width 13.2 % (11.0-16.0); White Blood Count 7.1 X10*3/uL (4.8-10.8)
[2023-04-26 08:05] LABS: Alanine Aminotransferase 27 U/L (0-40); Anion Gap 14 (12-20); Aspartate Amino Transferase 24 U/L (5-37); Blood Urea Nitrogen 28 mg/dL (9-16); Carbon Dioxide 27 mmol/L (22-29); Chloride 103 mmol/L (96-108); Estimated Glomerular Filt Rate > 60; Potassium 4.5 mmol/L (3.3-5.1); Sodium 139 mmol/L (135-145)
== END 2023-04-26 06:59 | disposition home or self-care (01) ==
LOC: HO.LAB 06:58
PROVIDERS: PCP Family Medicine; Visit Provider Family Medicine
DX: I10 Essential (primary) hypertension (principal); E78.00 Pure hypercholesterolemia, unspecified; R06.02 Shortness of breath; Z79.899 Other long term (current) drug therapy
CPT/HCPCS: 36415; 80051; 82550; 82565; 84450; 84460; 84520; 85025

== ENCOUNTER 2023-05-17 13:21 | Outpatient (REF) | payer MEDICARE, OTHER, SELFPAY ==
[2023-05-17 13:36] LABS: MANUAL DIFF FLAG NO
[2023-05-17 13:51] LABS: Basophils Absolute Auto 0.1 X10*3/uL (0.0-0.2); Basophils Percent Auto 0.3 % (0-2); Eosinophils Absolute Auto 0.2 X10*3/uL (0.0-0.4); Eosinophils Percent Auto 1.4 % (0-4); Hemoglobin 13.7 g/dl (14.0-18.0); Imm Gran Abs Auto 0.08 X10*3/uL (0.00-0.03); Imm Gran Pct Auto 0.6 % (0.0-0.4); Lymphocytes Absolute Auto 1.8 X10*3/uL (1.2-4.9); Lymphocytes Percent Auto 12.8 % (20-40); Mean Corpuscular HGB Conc 33.4 g/dl (31.0-36.0); Mean Corpuscular Hemoglobin 31.7 pg (27.0-33.0); Mean Corpuscular Volume 94.9 fL (80.0-98.0); Mean Platelet Volume 8.8 fL (9.4-12.4); Monocytes Absolute Auto 1.3 X10*3/uL (0.1-1.2); Monocytes Percent Auto 9.2 % (2-11); Neutrophils Absolute Auto 10.8 x10*3/uL (2.0-8.3); Neutrophils Percent Auto 75.7 % (45-73); Platelet Count 341 X10*3/uL (160-400); Red Blood Count 4.32 X10*6/uL (4.60-5.80); Red Cell Distribution Width 13.6 % (11.0-16.0); White Blood Count 14.3 X10*3/uL (4.8-10.8)
[2023-05-18 09:12] LABS: Carcinoembryonic Antigen < 1.73 ng/mL
== END 2023-05-17 13:22 | disposition home or self-care (01) ==
LOC: HO.LAB 13:21
PROVIDERS: PCP Family Medicine; Visit Provider Family Medicine
DX: R52 Pain, unspecified (principal); R53.1 Weakness
CPT/HCPCS: 36415; 82378; 85025

== ENCOUNTER 2023-05-26 09:44 | Outpatient (REF) | payer MEDICARE, OTHER, SELFPAY ==
[2023-05-26 12:17] LABS: Erythrocyte Sedimentation Rate 44 MM/HR (0-15)
[2023-05-26 12:33] LABS: Free T4 (Free Thyroxine) 0.93 ng/dL (0.71-1.85); Thyroid Stimulating Hormone 2.33 uIU/mL (0.32-4.0)
== END 2023-05-26 09:45 | disposition home or self-care (01) ==
LOC: HO.10HDL 09:44
PROVIDERS: Visit Provider Family Medicine
DX: R53.83 Other fatigue (principal)
CPT/HCPCS: 36415; 84439; 84443; 85652

== ENCOUNTER → 2023-06-01 10:39 | Outpatient (REF) | payer MEDICARE, OTHER, SELFPAY ==
--- NOTE | ~2023-06-01 | NM_ITS ---
EXAMINATION: NM BONE SCAN OF THE WHOLE BODY CLINICAL INFORMATION: Malignant neoplasm of prostate, sclerotic lesions on CT, question metastases. COMPARISON: The previous bone scan dated 07/11/2007 is available for comparison. Radiographs of the left shoulder dated 06/17/2021 are the most recent radiographs available for comparison. TECHNIQUE: Multiple gamma scintillation camera images of the whole body were performed 3 hours following the intravenous administration of 30 mCi Tc-99m MDP. FINDINGS: In the head, no significant abnormalities are present. In the thoracic cage and upper extremities, foci of markedly increased activity are present in the left inferior aspect of the sternum and the medial aspect of the left clavicle. Additional foci of moderately increased activity are present in the lateral aspect of the right third rib and the anterolateral aspects of the right sixth and seventh ribs in the anterolateral aspect of the left seventh rib. A few faint additional rib lesions are also present. In the spine, a focus of moderately increased activity is present in the midline upper thoracic spine, probably at T4 and a few very mild additional small foci of increased activity are present in the mid and lower thoracic spine and in the lumbar spine. In the pelvis, several foci of mildly to moderately increased activity are present in the posterior iliac bones bilaterally, in the midline mid sacrum and in the left ischium. In the lower extremities, no significant abnormalities are present. No other definite bony abnormalities are noted. The urinary bladder and faint visualization of both kidneys are noted. Compared to the previous bone scan dated 07/11/2007, essentially all the abnormalities or new. Mild abnormalities in the sternoclavicular joints bilaterally and costochondral junctions of the first ribs and minimal cervical spine abnormalities are the only findings on this previous bone scan. NM/NM bone scan whole body IMPRESSION: Metastatic tumor involvement of bone. The most severe involvement is in the sternum and medial aspect of the left clavicle and in a few rib and pelvic lesions. These findings are all new since 2007.
== END ==
LOC: HO.NUCMED 10:39
PROVIDERS: PCP Family Medicine; Visit Provider Family Medicine
DX: C61 Malignant neoplasm of prostate (principal)
CPT/HCPCS: 78306; A9503

== ENCOUNTER 2023-07-25 06:18 | Outpatient (REF) | payer MEDICARE, OTHER, SELFPAY ==
[2023-07-25 08:39] LABS: ~HepC Num1 0.18 S/CO (0.00-0.79)
[2023-07-25 08:40] LABS: Hepatitis B Surface Antigen Negative (Negative); ~Hepatitis C Antibody Nonreactive (Nonreactive)
[2023-07-26 13:04] LABS: Alpha Fetoprotein 1.4 ng/mL (<6.1)
[2023-07-26 15:08] LABS: Hepatitis B Viral DNA Qn - cp NOT DETECTED Log IU/mL (NOT DETECTED); Hepatitis B Viral DNA Qn-IU/mL NOT DETECTED (NOT DETECTED)
[2023-07-29 18:53] LABS: Hepatitis E Virus HEV IgG NOT DETECTED; Hepatitis E Virus HEV IgM NOT DETECTED
[2023-08-05 18:03] LABS: FIB-ALT 31 U/L (9-46); FIB-Alpha-2-Macroglobulin 389 mg/dL (106-279); FIB-Apolipoprotein A1 145 mg/dL (94-176); FIB-GGT 19 U/L (3-70); FIB-Haptoglobin 164 mg/dL (43-212); FIB-Total Bilirubin 0.3 mg/dL (0.2-1.2); Liver Fibrosis Score 0.56; Liver Fibrosis Stage F2; Nec Inflam Act Grade A0-A1; Nec Inflam Act Score 0.21
== END 2023-07-25 06:19 | disposition home or self-care (01) ==
LOC: HO.LAB 06:18
PROVIDERS: PCP Family Medicine; Visit Provider Family Medicine
DX: K75.81 Nonalcoholic steatohepatitis (NASH) (principal); R79.89 Other specified abnormal findings of blood chemistry
CPT/HCPCS: 36415; 81596; 82105; 86790; 86803; 87340; 87517

== ENCOUNTER 2023-08-12 06:00 | Outpatient (REF) | payer MEDICARE, OTHER, SELFPAY ==
[2023-08-12 08:06] LABS: Estimated Average Glucose 143 mg/dL; Hemoglobin A1c % 6.6 % (<6.0)
[2023-08-12 08:12] LABS: Glucose Fasting 123 mg/dL (60-99)
[2023-08-12 08:20] LABS: Creatinine Urine 52.75 mg/dL
== END 2023-08-12 06:01 | disposition home or self-care (01) ==
LOC: HO.LAB 06:00
PROVIDERS: PCP Family Medicine; Visit Provider Family Medicine
DX: E11.9 Type 2 diabetes mellitus without complications (principal)
CPT/HCPCS: 36415; 82043; 82570; 82947; 83036

== ENCOUNTER 2023-08-25 06:14 | Outpatient (REF) | payer MEDICARE, OTHER, SELFPAY ==
--- NOTE | ~2023-08-25 | XR_ITS ---
EXAMINATION: XR HIP, RIGHT CLINICAL INFORMATION: Right hip pain. Prostate cancer. COMPARISON: Right hip radiographs dated 11/17/2016. TECHNIQUE: AP view of the pelvis as well as AP and frog-leg lateral views of the right hip. FINDINGS: No acute fracture or dislocation. Mild bilateral hip joint space narrowing with marginal osteophytes, right greater than left. There are multiple sclerotic foci throughout the pelvis measuring up to 2.1 cm within the right iliac bone and 1.7 cm within the left pubic ramus. Findings correspond with the patient's history of metastatic prostate cancer. No pathologic fracture. Surgical clips within the pelvis. Atherosclerotic calcifications. XR/XR hip RT min 2V IMPRESSION: 1. No acute fracture or dislocation. 2. Mild bilateral hip osteoarthritis, right greater than left. 3. Multiple sclerotic foci within the pelvis corresponding to the patient's history of metastatic prostate cancer.
== END 2023-08-25 06:15 | disposition home or self-care (01) ==
LOC: HO.HOSX 06:14
PROVIDERS: Visit Provider Physician Assistant
DX: M16.11 Unilateral primary osteoarthritis, right hip (principal); M70.61 Trochanteric bursitis, right hip
CPT/HCPCS: 73502; 99212

== ENCOUNTER 2023-08-25 15:06 | Outpatient (AMB) | payer MEDICARE, OTHER, SELFPAY ==
--- NOTE | 2023-08-25 15:36 | MHC.OFFVIS ---
Vital Signs 08/25/23 15:45 Height 5 ft 8 in Weight 191 lb BMI 29.0 Intake Visit Reasons: newprob-RT hip pain-interested in cortisone inj. Intake Note: Norman an 83 year old male who presents today for an evaluation of right hip pain. Patient reports hip pain for a while, states he was recently seen by his oncologist who had ordered a scan which had revealed arthritis. He states his PCP and oncologist suggested a right hip cortisone injection. His pain is located on the lateral side of hip. He believes having injections in the past with KI however he does not recall. Allergies oxycodone [OXYCODONE] Allergy (Unknown, Verified 08/25/23 15:45) NAUSEA & VOMITING HPI HPI newprob-RT hip pain-interested in cortisone inj.: Details: 83-year-old male who presents to the office today for an evaluation of right hip pain for more than 3 months. He was recently seen by his oncologist who ordered a scan. He reports his PCP and oncologist suggested a right hip cortisone injection. He currently states he has pain in the lateral aspect of hip and buttock region of right hip that occasionally radiates to his leg. He also experiences numbness and tingling in his hip. He is interested in having a cortisone injection. [facility] Medical History Carotid arterial disease Coronary artery disease Diabetes mellitus GERD (gastroesophageal reflux disease) Hyperlipemia Hypertension Myocardial infarct (~1989) Prostate CA (~2002) Surgical History Status post coronary artery bypass graft H/O carotid endarterectomy (~2008) History of cataract surgery History of cholecystectomy (~02/26/14) History of cardiac catheterization (~11/16/17) History of coronary artery bypass graft x 3 (~01/04/18) Family History Father Cardiovascular disease Myocardial infarction Mother No problems noted. 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 Review of Systems Const All systems reviewed & are unremarkable except as noted in HPI and below Physical Exam Vital Signs: BMI result Body Mass Index 29.0 Const General: cooperative, healthy appearing, comfortable, no acute distress, well developed and alert Orientation/consciousness: patient oriented x3 HEENT Head: Yes normal to inspection, Yes normocephalic and Yes atraumatic Eyes General: appearance normal, both eyes and all related structures Resp Effort & Inspection: normal respiratory effort and able to speak in complete sentences Cardio Rate: regular rate Peripheral pulses: Peripheral pulses 2+ throughout GI Palpation (GI): Soft to palpation Skin Lesions: no lesions Rashes: no rashes Neuro General: patient oriented x3 Extrem Other: Right hip: Normal to inspection. No pain with ROM of the hip. Pain along the greater trochanter. No pain with hip flexion or abduction. Negative tenderness along the SI joint, Negative SLR. NVI. Results Reviewed Results Reviewed: Xrays were obtained in the office today and personally reviewed by me of the right hip show mild oa Assessment & Plan Assessment & Plan (1) Osteoarthritis of right hip: Code(s): M16.11 - Unilateral primary osteoarthritis, right hip Category: Medical (2) Trochanteric bursitis, right hip: Code(s): M70.61 - Trochanteric bursitis, right hip Category: Medical Plan We discussed options which include PT, NSAIDs and injections. The patient will defer on the injection today and proceed with celebrex for inflammation. I did explain the benefits of PT but at this time he will hold off as he is in treatment for prostate cancer. He will contact me if symptoms persist or worsen for an injection, otherwise, prn. Orders: Orders XR hip RT min 2V Today M25.551 - Pain in right hip Medications: Refilled celecoxib (Celebrex) 200 mg PO BID 60 caps 3RF 30 days Patient Instructions: Scribed for Sabine Chauhan PA-C, by Terrence Gallegos biomedical engineering aide, on 08/25/2023 at 3:15 PM EST.? I, Sabine Chauhan PA-C, have personally reviewed and agree with the information entered by the scribe. Coding Level of Care Code Est Pt Level 3 (41761) Diagnoses Osteoarthritis of right hip M16.11 Trochanteric bursitis, right hip M70.61
[2023-08-25 15:45] VITALS: BMI 29.0
== END 2023-08-25 16:23 | disposition home or self-care (01) ==
PROVIDERS: PCP Family Medicine; Visit Provider Physician Assistant
DX: M16.11 Unilateral primary osteoarthritis, right hip (principal); M70.61 Trochanteric bursitis, right hip
CPT/HCPCS: 99214

== ENCOUNTER 2023-11-17 06:47 | Outpatient (REF) | payer MEDICARE, OTHER, SELFPAY ==
[2023-11-17 08:27] LABS: Anion Gap 15 (12-20); Blood Urea Nitrogen 20 mg/dL (9-16); Carbon Dioxide 28 mmol/L (22-29); Chloride 104 mmol/L (96-108); Estimated Glomerular Filt Rate > 60; Magnesium 1.9 mg/dL (1.6-2.6); Potassium 5.2 mmol/L (3.3-5.1); Sodium 142 mmol/L (135-145)
== END 2023-11-17 06:48 | disposition home or self-care (01) ==
LOC: HO.LAB 06:47
PROVIDERS: PCP Family Medicine; Visit Provider Family Medicine
DX: I10 Essential (primary) hypertension (principal)
CPT/HCPCS: 36415; 80051; 82565; 83735; 84520

== ENCOUNTER 2024-03-26 13:24 | Outpatient (AMB) | payer MEDICARE, OTHER, SELFPAY ==
[2024-03-26 13:41] VITALS: BP 138/68; PULSE 58; BMI 28.8
--- NOTE | 2024-03-26 13:41 | A.OFFVIS_ITS ---
Vital Signs 03/26/24 13:41 Height 5 ft 8 in Weight 189 lb 9.561 oz BMI 28.8 BP 138/68 Blood Pressure Location Lt brachial Position Sitting Pulse 58 Pulse Source Monitor Intake Visit Reasons: 1 yr followup w/ekg Senior Product Analyst Required: No Allergies oxycodone [OXYCODONE] Allergy (Unknown, Verified 03/26/24 13:44) NAUSEA & VOMITING Medication List - Last Reconciled 03/26/24 by Natalie Ayala, ERECTING CRANE OPERATOR-C allopurinol 300 mg PO DAILY amlodipine 10 mg PO DAILY aspirin (Adult Low Dose Aspirin) 81 mg PO DAILY atorvastatin 80 mg PO DAILY bicalutamide 50 mg PO DAILY carvedilol 12.5 mg PO BID celecoxib (Celebrex) 200 mg PO BID 30 days empagliflozin (Jardiance) 10 mg PO DAILY enzalutamide (Xtandi) 160 mg PO DAILY ezetimibe 10 mg PO DAILY 90 days insulin aspart U-100 units subcut insulin detemir U-100 (Levemir FlexTouch U-100 Insulin) units subcut lisinopril 5 mg PO DAILY metformin 500 mg PO BID metformin 500 mg PO BID omeprazole 20 mg PO BID pen needle, diabetic (Novofine 32) As directed tramadol 50 mg PO BID PRN HPI HPI 1 yr followup w/ekg: Details: Rosana is an 84-year-old male past medical history of hypertension, hyperlipidemia, diabetes, carotid stenosis status post carotid endarterectomy, CAD status post coronary artery bypass grafting, left atrial appendage ligation, 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 Today he reports he has been doing well since his last visit here 12/28/2022. He has not been having issues with chest discomfort at rest or with activity. Denies shortness of breath, PND, orthopnea or edema. No palpitations, lightheadedness, presyncope, syncope, falls. He reports compliance with his medications. He has good activity tolerance. He does report a new diagnosis of prostate CA and is now following with oncology. [facility] Medical History Coronary artery disease Carotid arterial disease Myocardial infarct (~1989) Prostate CA (~2002) GERD (gastroesophageal reflux disease) Hyperlipemia Hypertension Diabetes mellitus Surgical History Status post coronary artery bypass graft H/O carotid endarterectomy (~2008) History of cataract surgery History of cholecystectomy (~02/26/14) History of cardiac catheterization (~11/16/17) History of coronary artery bypass graft x 3 (~01/04/18) Family History Father Cardiovascular disease Myocardial infarction Mother No problems noted. 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 Review of Systems Const All systems reviewed & are unremarkable except as noted in HPI and below ENT Denies dizziness Card Denies chest pain, Denies chest pain at rest, Denies chest pain with activity, Denies rapid heart rate, Denies pedal edema, Denies edema, Denies leg edema, Denies lightheadedness, Denies palpitations, Denies dyspnea, Denies dyspnea on exertion and Denies orthopnea Resp Denies cough, Denies dyspnea and Denies dyspnea on exertion GI Denies hematochezia and Denies change in stool character Musc Denies abnormal gait, Denies limited range of motion, Denies muscle cramps, Denies muscle weakness, Denies numbness, Denies radiating pain into limb, Denies stiffness and Denies tingling Neuro Denies abnormal gait, Denies dizziness, Denies numbness and Denies tingling Endo Denies palpitations Physical Exam Vital Signs: Last Vital Signs Pulse 58 03/26/24 13:41 BP 138/68 03/26/24 13:41 BMI result Body Mass Index 28.8 Const General: cooperative, healthy appearing, comfortable and no acute distress Orientation/consciousness: patient oriented x3 Neck Neck: Yes normal visual inspection Resp Effort & Inspection: normal respiratory effort Auscultation: clear to auscultation bilaterally, no rales, no rhonchi and no wheezes Cardio Jugular venous distension: no JVD Rate: regular rate Rhythm: regular rhythm Heart sounds: S1 normal heart sound present, S2 normal heart sound present, no murmurs and no rubs Neuro General: patient oriented x3 Extrem General: Yes normal to inspection, No no pedal edema and No calf tenderness Psych Appearance: grossly normal Mental Status: mental status grossly normal Speech and movement: Normal speech and movement present Office Procedures EKG Details: Today, read by me, Sinus bradycardia, cant exclude possible anterior infarct, most likely related to lead placement, nonspecific ST and T wave abn, rate 68 [id number], Complete Assessment & Plan Assessment & Plan (1) Coronary artery disease: Code(s): I25.10 - Atherosclerotic heart disease of [place] coronary artery without angina pectoris Category: Medical Plan: History of CAD with three-vessel coronary artery bypass grafting 01/04/2018, 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 Last echocardiogram 01/28/2023 shows EF 60-65%, mild LVH, grade 3 diastolic dysfunction. EKG done today shows sinus bradycardia, can not exclude prior anterior infarct, nonspecific ST and T- wave abnormality, rate 58. He has no reports of anginal sounding symptoms. Continue with good risk factor modification. Continue aspirin indefinitely. Continue high-dose atorvastatin and Zetia with ideal LDL goal less than 70. Continue carvedilol and lisinopril for good blood pressure and heart rate control. Signs and symptoms of angina reviewed with him. Cardiology follow-up in 1 year, sooner if needed. (2) Status post coronary artery bypass graft: Code(s): Z95.1 - Presence of aortocoronary bypass graft Category: Surgical Plan: As above (3) Essential hypertension: Code(s): I10 - Essential (primary) hypertension Category: Medical Plan: Well controlled at this time. No med changes made. (4) Other and unspecified hyperlipidemia: Code(s): E78.5 - Hyperlipidemia, unspecified Category: Medical Plan: [place] LDL goal less than 70. No recent lipid profile in our system. Will enter order and have patient obtain in the near future. Continue atorvastatin and Zetia. (5) Diabetes mellitus: Code(s): E11.9 - Type 2 diabetes mellitus without complications Category: Medical Qualifiers: Diabetes mellitus type: type 2 Diabetes mellitus retirement insulin use: with retirement use Plan: Hemoglobin A1c goal less than 7. Followed by his PCP Plan Time spent on chart review, documentation, interview, assessment Orders: Orders Comprehensive Met. Panel Today I25.10 - Atherosclerotic heart disease of [place] coronary artery without angina pectoris Lipid Panel Today I25.10 - Atherosclerotic heart disease of [place] coronary artery without angina pectoris Coding Level of Care Code Est Pt Level 4 (50284) Complex EM visit Add On G2211 Diagnoses Coronary artery disease I25.10 Status post coronary artery bypass graft Z95.1 Essential hypertension I10 Other and unspecified hyperlipidemia E78.5 Diabetes mellitus E11.9 Diabetes mellitus type: type 2 Diabetes mellitus retirement insulin use: with intermodal customer service use CPT Codes EKG - CPT: 70557-[id number], Complete ([id number]) Time Spent (min) 36
== END 2024-03-26 14:18 | disposition home or self-care (01) ==
PROVIDERS: PCP Family Medicine; Visit Provider Nurse Practitioner Family
DX: I25.10 Atherosclerotic heart disease of native coronary artery without angina pectoris (principal); Z95.1 Presence of aortocoronary bypass graft; I10 Essential (primary) hypertension; E78.5 Hyperlipidemia, unspecified; E11.9 Type 2 diabetes mellitus without complications
CPT/HCPCS: 93010; 99214; G2211

== ENCOUNTER → 2024-03-26 13:24 | Outpatient (BNVA) | payer MEDICARE, OTHER, SELFPAY | PROVIDERS: PCP Family Medicine; Visit Provider Nurse Practitioner Family | DX: I25.10 Atherosclerotic heart disease of native coronary artery without angina pectoris (principal); I10 Essential (primary) hypertension; E11.9 Type 2 diabetes mellitus without complications; E78.5 Hyperlipidemia, unspecified; Z95.1 Presence of aortocoronary bypass graft | CPT/HCPCS: 93005; 99212 ==

== ENCOUNTER 2024-06-14 06:02 | Outpatient (REF) | payer MEDICARE, OTHER, SELFPAY ==
[2024-06-14 06:21] LABS: MANUAL DIFF FLAG NO
[2024-06-14 07:11] LABS: Basophils Absolute Auto 0.1 X10*3/uL (0.0-0.2); Basophils Percent Auto 1.1 % (0-2); Eosinophils Absolute Auto 0.5 X10*3/uL (0.0-0.4); Eosinophils Percent Auto 7.7 % (0-4); Hemoglobin 14.5 g/dl (14.0-18.0); Imm Gran Abs Auto 0.02 X10*3/uL (0.00-0.03); Imm Gran Pct Auto 0.3 % (0.0-0.4); Lymphocytes Absolute Auto 1.8 X10*3/uL (1.2-4.9); Mean Corpuscular HGB Conc 33.7 g/dl (31.0-36.0); Mean Corpuscular Hemoglobin 32.7 pg (27.0-33.0); Mean Corpuscular Volume 96.8 fL (80.0-98.0); Mean Platelet Volume 9.2 fL (9.4-12.4); Monocytes Absolute Auto 0.7 X10*3/uL (0.1-1.2); Monocytes Percent Auto 10.7 % (2-11); Neutrophils Absolute Auto 3.5 x10*3/uL (2.0-8.3); Neutrophils Percent Auto 53.2 % (45-73); Platelet Count 331 X10*3/uL (160-400); Red Blood Count 4.44 X10*6/uL (4.60-5.80); Red Cell Distribution Width 13.2 % (11.0-16.0); White Blood Count 6.5 X10*3/uL (4.8-10.8)
[2024-06-14 07:20] LABS: Estimated Average Glucose 131 mg/dL; Hemoglobin A1c % 6.2 % (<6.0); Total Hemoglobin (HGBA1C) 3767.4096 umol/L
[2024-06-14 07:41] LABS: Alanine Aminotransferase 20 U/L (0-40); Anion Gap 14 (12-20); Aspartate Amino Transferase 24 U/L (5-37); Blood Urea Nitrogen 23 mg/dL (9-16); Carbon Dioxide 28 mmol/L (22-29); Chloride 105 mmol/L (96-108); Estimated Glomerular Filt Rate > 60; Glucose Fasting 124 mg/dL (60-99); Potassium 4.6 mmol/L (3.3-5.1); Sodium 142 mmol/L (135-145)
== END 2024-06-14 06:03 | disposition home or self-care (01) ==
LOC: HO.LAB 06:02
PROVIDERS: PCP Family Medicine; Visit Provider Family Medicine
DX: I10 Essential (primary) hypertension (principal); E78.00 Pure hypercholesterolemia, unspecified; E11.9 Type 2 diabetes mellitus without complications; C61 Malignant neoplasm of prostate; Z79.899 Other long term (current) drug therapy
CPT/HCPCS: 36415; 80051; 82550; 82565; 82947; 83036; 84450; 84460; 84520; 85025

== ENCOUNTER → 2025-01-23 09:43 | Outpatient (BNV) | payer MEDICARE, OTHER, SELFPAY | PROVIDERS: Visit Provider Internal Medicine Medical Oncology | DX: C61 Malignant neoplasm of prostate (principal); C79.51 Secondary malignant neoplasm of bone; M25.50 Pain in unspecified joint; K59.00 Constipation, unspecified | CPT/HCPCS: 99204 ==